=== PATIENT | female | born 1960 | race Caucasian/White ===

== ENCOUNTER 2022-06-09 14:12 | Observation (INO) ==
--- NOTE | 2022-06-09 14:24 | DR.DIZZY ---
HPI Time seen Time Seen by Provider: 06/09/22 14:22 HPI Comment HPI Comment: A 62 y/o female presenting with dizziness, described as if things are or her head is spinning. She had associated nausea but no vomitting. THis had been going on for about 6 months. She just left Dr. Moseley's clinic where s he had a tilt test done. She denies tinnitus. She denies palpitaions, c/p or SOB. She has seen a hand bander, ENT provider and she is waiting to see a Neurologist. She has had EKGs, Holter monitor, Echocardiogram and Brain CT scan. She had a tilt test done this afternoon. 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 It is not radiating, she has no SOB or palpitations. She had been given a S/L NTG at the clinic for the tilt test ? Nurses Notes Reviewed Nurses Notes Review: Yes Source History Provided: Patient and Family Member Location of Weakness Weakness Location: None Context Onset: At rest and With light exertion Stroke Symptoms: Dizziness Modifying factors Worsens: Nothing Associated signs and symptoms Associated Signs and Symptoms: Syncope, Near Syncope, Imbalance and Nausea PMH PMH Past Medical History: Anxiety, Arthritis, Diabetes, GERD, Hypertension and Sleep Apnea Past Medical History Comment: Dizziness, Syncope Past Surgical History: Yes Surgical History: Hysterectomy and Ortho Surgery Family History Family Medical History: [place], Coronary Artery Disease and Hypertension Social History Do you use any recreational Drugs:: No ROS Review of Systems Constitutional: No Symptoms Reported Eyes: No Symptoms Reported ENTM: No Symptoms Reported Respiratoy: No Symptoms Reported Cardiovascular: Chest Pain and Syncope Gastrointestinal/Abdominal: No Symptoms Reported Genitourinary: No Symptoms Reported Neurological: Dizziness Musculoskeletal: No Symptoms Reported Integumentary: No Symptoms Reported Hematologic/Lymphatic: No Symptoms Reported Endocrine: No Symptoms Reported Psychiatric: No Symptoms Reported All Other Systems: Reviewed and Negative PE Vital Signs Vitals: Temperature 98.3 F Pulse Rate [Standing] 68 Pulse Rate [Sitting] 70 Pulse Rate [Lying] 62 Pulse Rate 63 Respiratory Rate 20 Blood Pressure [Left Arm] 145/67 Blood Pressure [Standing] 184/79 Blood Pressure [Sitting] 167/88 Blood Pressure [Lying] 165/81 Blood Pressure 154/69 O2 Sat by Pulse Oximetry 97 General Limitations: No Limitations General Appearance: Alert and In No Apparent Distress Head Head Exam: Normal Inspection, Atraumatic and Normocephalic Eyes Eye exam: Normal Appearance and EOMI ENT ENT Exam: Normal Exam, Normal Oropharynx, Normal External Ear Exam and Mucous Membranes Moist Neck Neck Exam: Normal Inspection, Full ROM and Trachea Midline Chest Chest Inspection: Normal Inspection and Symmetric Chest Wall Rise Respiratory Respiratory Exam: Normal Lung Sounds Bilat Cardiovascular Cardiovascular Exam: Regular Rate, Normal Rhythm, Normal Heart Sounds, +S1 and +S2 Abdominal Exam Abdominal Exam: Normal Inspection, Normal Bowel Sounds and Soft Rectal Rectal Exam: Deferred Extremeties Extremities Exam: Normal Inspection and Full ROM Back Back Exam: Normal Inspection and Full ROM Neurologic Neurological Exam: Alert and Oriented X3 Psychiatric Psychiatric Exam: Normal Affect and Normal Mood Skin Skin Exam: Dry, Intact and Normal Color COURSE Treatment Treatment: her test results were reviewed with her. She has had a dose of S/L NTG which caused headache. She's had IV Lopressor and Morphine Sulphate. HEr EKG, Cardiac Enzymes were normal. I discussed with Dr. Crawley, who agrees to hold her in house for OBS., to r/o. Reevaluation 1st: Improved Education/Counseling Education/Counseling: Patient, Family, Education and Counseling Educated On: Treatment, Diagnosis, Prognosis and Needs for Follow Up ROR Labs Reviewed Laboratory Results Reviewed?: Yes Result Diagrams: 06/09/22 14:45 Laboratory: PT 13.2 SECONDS (11.8-14.3) 06/09/22 14:45 INR Target Range - 06/09/22 14:45 INR 1.03 (0.8-1.3) 06/09/22 14:45 APTT 28.1 SECONDS (22.9-36.5) 06/09/22 14:45 PTT Comment - 06/09/22 14:45 Sodium 142 mmol/L (136-145) 06/09/22 14:45 Corrected Sodium TNP 06/09/22 14:45 Potassium 3.8 mmol/L (3.5-5.1) 06/09/22 14:45 Chloride 107 mmol/L (98-107) 06/09/22 14:45 Carbon Dioxide 28.9 mmol/L (21-32) 06/09/22 14:45 BUN 11 mg/dL (7-18) 06/09/22 14:45 Creatinine 0.66 mg/dL (0.55-1.02) 06/09/22 14:45 Est GFR (MDRD) Af Amer > 60 (>60) 06/09/22 14:45 Est GFR (MDRD) Non-Af > 60 (>60) 06/09/22 14:45 Glucose 88 mg/dL (65-99) 06/09/22 14:45 Calcium 9.1 mg/dL (8.5-10.1) 06/09/22 14:45 Corrected Calcium TNP 06/09/22 14:45 Magnesium 1.9 mg/dL (2.0-2.9) L 06/09/22 14:45 Total Bilirubin 0.30 mg/dL (0.2-1.0) 06/09/22 14:45 AST 15 Units/L (15-37) 06/09/22 14:45 ALT 14 Units/L (12-78) 06/09/22 14:45 Alkaline Phosphatase 136 Units/L (46-116) H 06/09/22 14:45 Creatine Kinase 47 Units/L (26-192) 06/09/22 14:45 Troponin I High Sens 8.0 ng/L (4.0-60.0) 06/09/22 14:45 Total Protein 6.9 g/dL (6.4-8.2) 06/09/22 14:45 Albumin 3.6 g/dL (3.4-5.0) 06/09/22 14:45 Globulin 3.3 g/dL (2.5-4.5) 06/09/22 14:45 Albumin/Globulin Ratio 1.1 Ratio (1.1-2.1) 06/09/22 14:45 XRAY XRAY Interpreted by: Self X-ray Results: CXR: no cardiomegaly or infiltrates noted. EKG Rate: 60 Adel: Normal Rhythm: NSR Block: None Hypertrophy: None ST: Normal Opioid Opioid Risk Tool Age (Poli box if 16-45): No History of Preadolescent Sexual Abuse: No Total: 0 Total Score Risk Category: Low Risk Copyright: [facility] predicting aberrant behaviors Discharge Plan Diagnosis Discharge Problem: Chest pain at rest, Syncope, HTN (hypertension), Diabetes mellitus type 2, controlled Discharge Plan Patient Disposition: 09 ADMITTED INPATIENT Condition: Stable Prescriptions: No Action amlodipine 10 mg tablet 10 mg PO QDAY pantoprazole 40 mg tablet,delayed release (DR/EC) 40 mg PO BID Dupixent Pen 300 mg/2 mL pen injector 300 mg SUBCUT Q2W cetirizine 10 mg tablet 10 mg PO QDAY oxybutynin chloride 5 mg tablet 5 mg PO BID hydroxyzine HCl 10 mg tablet 1 - 2 tab PO Q6H PRN (Reason: anxiety) fluticasone propionate 50 mcg/actuation spray,suspension 1 spray INTRANASAL QDAY dicyclomine 10 mg capsule 10 mg PO TID PRN buspirone 15 mg tablet 15 mg PO QPM alprazolam 1 mg tablet 1 mg PO QHS PRN Label Comments: TAKE 1 TABLET BY MOUTH ONCE DAILY AT BEDTIME NEEDED Health Concerns: Post Hospitalization: new medications and changes needed to prevent readmission or further decline. Pt educated and given instructions on all concerns. Plan of Treatment: Continue with present treatment and follow up plan. Pt is to keep follow up a ppointment as instructed and take medications as ordered. Orders to Discharge Patient Discharge Orders: Transfer (Routine); Ordered 06/09/22 Ordered By: GILDA CRUZ Follow ups/Referrals Follow ups/Referrals: Nawaf BERNABE [Primary Care Provider] - 3 days
[2022-06-09 14:27] VITALS: BMI 29.4
[2022-06-09] MEDS ORDERED: ANTIVERT TAB 25 MG PO ONE (14:28)
[2022-06-09] MEDS ORDERED: NITROSTAT SL PRN (14:37)
[2022-06-09] MEDS ORDERED: ANTIVERT TAB 25 MG ONE (14:51)
[2022-06-09] MEDS ORDERED: MORPHINE SULFATE INJ 2 MG INJ ONE (15:12)
[2022-06-09] MEDS ORDERED: MORPHINE SULFATE INJ 2 MG INJ IVP ONE (15:12)
[2022-06-09 15:20] LABS: INR 1.03 (0.8-1.3)
[2022-06-09 15:24] LABS: ALANINE AMINOTRANSFERASE 14 Units/L (12-78); ALBUMIN 3.6 g/dL (3.4-5.0); ALKALINE PHOSPHATASE 136 Units/L (46-116); ASPARTATE AMINO TRANSFERASE 15 Units/L (15-37); BLOOD UREA NITROGEN 11 mg/dL (7-18); CALCIUM 9.1 mg/dL (8.5-10.1); CARBON DIOXIDE 28.9 mmol/L (21-32); CHLORIDE 107 mmol/L (98-107); CREATININE 0.66 mg/dL (0.55-1.02); SODIUM 142 mmol/L (136-145); TOTAL PROTEIN 6.9 g/dL (6.4-8.2); eGFR NON BLACK RACES > 60 (>60)
[2022-06-09] MEDS ORDERED: ATIVAN 20 MG/10 ML VIAL IVP ONE (15:40)
[2022-06-09] MEDS ORDERED: ATIVAN INJ 2 MG VIAL ONE (15:42)
[2022-06-09] MEDS ORDERED: DUONEB 0.5 MG/3 MG (3 mL) NEB ONE (16:43)
[2022-06-09] MEDS ORDERED: LOPRESSOR INJ 5 MG AMP IVP ONE (16:55)
[2022-06-09] MEDS ORDERED: LOPRESSOR INJ 5 MG AMP ONE (16:56)
--- NOTE | 2022-06-09 17:19 | RAD ---
HISTORYChest painSTUDYSingle-view chestCOMPARISONNoneFINDINGSThe trachea is midline. The cardiac silhouette is enlarged with a tortuous thoracic aorta . The lungs are clear without focal infiltrate or effusion. The bony thorax is unremarkable.IMPRESSIONNo acute cardiopulmonary disease.Electronically signed by: PAT PEREZ (Jun 09, 2022 17:17:59)
[2022-06-09] MEDS ORDERED: ANTIVERT TAB 25 MG PO PRN (17:39)
[2022-06-09] MEDS ORDERED: ATARAX TAB 10 MG PO PRN (19:17)
[2022-06-09] MEDS ORDERED: BENTYL CAP 10 MG PO PRN (19:17)
[2022-06-09] MEDS: LOVENOX INJ 40 MG SYR SC SCH (21:00)
[2022-06-09] MEDS: NS 1,000 ML IV 1,000 ML IV SCH (21:21)
[2022-06-09] MEDS: FLONASE NASAL SPRAY ENOSTRIL SCH (21:21)
[2022-06-09] MEDS: XANAX PO PRN (21:22)
[2022-06-09] MEDS: PROTONIX TAB 40 MG PO SCH (21:22)
[2022-06-09] MEDS: NORVASC TAB 10 MG PO SCH (21:23)
[2022-06-09] MEDS: DITROPAN TAB 5 MG PO SCH (21:23)
[2022-06-09] MEDS: ZyrTEC TAB 10 MG PO SCH (21:23)
[2022-06-09] MEDS: LOPRESSOR TAB 50 MG PO SCH (21:23)
[2022-06-09] MEDS: BUSPAR PO SCH (21:24)
[2022-06-09] MEDS: MORPHINE SULFATE INJ 2 MG INJ IVP PRN (21:24)
[2022-06-10] MEDS: MORPHINE SULFATE INJ 2 MG INJ IVP PRN ×4 (02:51→17:03)
[2022-06-10 03:09] LABS: BASOPHILS # (AUTO) 0.1 X10^3/uL (0.0-0.1); BASOPHILS % (AUTO) 1.6 % (0.2-1.0); EOSINOPHILS # (AUTO) 0.3 x10^3/uL (0.0-0.2); HEMATOCRIT 37.3 % (36.0-47.0); HEMOGLOBIN 13.3 g/dL (12.0-16.0); LYMPHOCYTES # (AUTO) 3.2 X10^3/uL (1.3-2.9); LYMPHOCYTES % (AUTO) 33.9 % (21.0-51.0); MEAN CORPUSCULAR HEMOGLOBIN 30.2 pg (27.0-34.0); MEAN CORPUSCULAR HGB CONC 35.7 g/dL (33.0-35.0); MEAN CORPUSCULAR VOLUME 84.6 fL (80.0-100.0); MEAN PLATELET VOLUME 9.8 fL (7.4-11.0); MONOCYTES # (AUTO) 0.7 x10^3/uL (0.3-0.8); MONOCYTES % (AUTO) 7.1 % (0.0-13.0); NEUTROPHILS # (AUTO) 5.1 x10^3/uL (2.2-4.8); NEUTROPHILS % (AUTO) 54.4 % (42.0-75.0); WHITE BLOOD COUNT 9.4 X10^3/uL (3.6-10.0)
[2022-06-10 03:25] LABS: ALANINE AMINOTRANSFERASE 10 Units/L (12-78); ALKALINE PHOSPHATASE 126 Units/L (46-116); ASPARTATE AMINO TRANSFERASE 11 Units/L (15-37); BLOOD UREA NITROGEN 14 mg/dL (7-18); CALCIUM 8.4 mg/dL (8.5-10.1); CARBON DIOXIDE 26.2 mmol/L (21-32); CHLORIDE 108 mmol/L (98-107); CHOL/HDL RATIO 6.7 (0.0-5.0); CHOLESTEROL 174 mg/dL (0-200); COR CA(FOR HYPOALB) 9.2 mg/dL (8.5-10.1); CREATININE 1.08 mg/dL (0.55-1.02); HDL CHOLESTEROL 26 mg/dL (40-60); SODIUM 142 mmol/L (136-145); TOTAL PROTEIN 6.1 g/dL (6.4-8.2); TRIGLYCERIDES 259 mg/dL (0-150); eGFR NON BLACK RACES 54 (>60)
[2022-06-10] MEDS ORDERED: K-DUR TAB 20 MEQ PO PRN (03:35)
[2022-06-10] MEDS ORDERED: K-RIDER 10 MEQ/NS 100 ML 10 MEQ/100 ML BAG IV PRN (03:35)
[2022-06-10] MEDS ORDERED: MICRO K EXTEN CAP 10 MEQ PO PRN (03:35)
[2022-06-10] MEDS ORDERED: KLOR-CON PO PRN (03:35)
[2022-06-10] MEDS: MAGNESIUM SULFATE 1 GRAM/100 mL PREMIX 1 G/100 ML BAG IV PRN ×2 (04:08→05:12)
[2022-06-10] MEDS ORDERED: ZOFRAN INJ 4 MG VIAL IVP PRN (07:23)
[2022-06-10] MEDS: ASPIRIN PO SCH (09:45)
[2022-06-10] MEDS: PROTONIX TAB 40 MG PO SCH ×2 (09:45→21:20)
[2022-06-10] MEDS: LOPRESSOR TAB 50 MG PO SCH ×2 (09:46→21:21)
[2022-06-10] MEDS: NORVASC TAB 10 MG PO SCH (09:47)
[2022-06-10] MEDS: ZyrTEC TAB 10 MG PO SCH (09:47)
[2022-06-10] MEDS: LOVENOX INJ 40 MG SYR SC SCH ×2 (09:49→21:22)
[2022-06-10] MEDS: DITROPAN TAB 5 MG PO SCH ×2 (09:49→21:21)
[2022-06-10] MEDS: FLONASE NASAL SPRAY ENOSTRIL SCH (10:17)
[2022-06-10] MEDS: NS 1,000 ML IV 1,000 ML IV SCH ×3 (11:29→21:42)
--- NOTE | 2022-06-10 13:26 | DR.H&P ---
H&P - History & Physical for Day of: H&P Date: 06/09/22 - Chief Complaint Chief Complaint: chest pain, syncope - History of Present Illness History of Present Illness: A 62 y/o wf, ER admission after presenting with dizziness, described as if things are or her head is spinning. She had associated nausea but no vomitting. This had been going on for about 6 months. She just left Dr. Moseley's clinic where she had a tilt test done. She denies tinnitus. She denies palpitaions, c/p or SOB. She has seen a outboard motor tester, ENT provider and she is waiting to see a Neurologist. She has had EKGs, Holter monitor, Echocardiogram and Brain CT scan. She had a tilt test done this afternoon. 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 It is not radiating, she has no SOB or palpitations. She had been given a S/L NTG at the clinic for the tilt test. - Past Medical History Past Medical History: Hypertension, Diabetes, Anxiety, GERD, Arthritis, Sleep Apnea - Past Surgical History Surgical History: Hysterectomy, Ortho Surgery - Family History Family Medical History: Cancer, Coronary Artery Disease, Hypertension - Social History Does patient currently use any type of tobacco product: No Have you used tobacco products in the last 12 months: No Type of Tobacco Use: None Does any household member use tobacco: No Alcohol Use: None Drug Use: None - Medications Home Medications: hydrocodone Allergy (Verified 08/29/18 20:28) CONTINUE taking the following medications buspirone 15 mg tablet 15 mg PO QPM 06/09/22 [History] cetirizine 10 mg tablet 10 mg PO QDAY 06/09/22 [History] dicyclomine 10 mg capsule 10 mg PO TID PRN 06/09/22 [History] fluticasone propionate 50 mcg/actuation nasal spray,suspension 1 spray intranasal QDAY 06/09/22 [History] hydroxyzine HCl 10 mg tablet 1 - 2 tab PO Q6H PRN anxiety 06/09/22 [History] oxybutynin chloride 5 mg tablet 5 mg PO BID 06/09/22 [History] - Review of Systems Constitutional: Malaise Eyes: No Symptoms Reported ENT: No Symptoms Reported Respiratory: No Symptoms Reported Cardiovascular: Chest Pain, Palpitations Gastrointestinal: Nausea Musculoskeletal: No Symptoms Reported Skin: No Symptoms Reported Neurological: Weakness, Other (syncope) - Physical Exam Vital Signs: Temperature 97.9 F Pulse Rate [Right Brachial] 64 Pulse Rate [Standing] 68 Pulse Rate [Sitting] 70 Pulse Rate [Lying] 62 Pulse Rate 63 Respiratory Rate 18 Blood Pressure [Right Arm] 106/51 Blood Pressure [Left Arm] 145/67 Blood Pressure [Standing] 184/79 Blood Pressure [Sitting] 167/88 Blood Pressure [Lying] 165/81 Blood Pressure 154/69 O2 Sat by Pulse Oximetry 96 Oriented: Normal Eyes: Normal Ear: Normal Nose: Normal Throat: Normal Respiratory: Clear Throughout Cardiovascular: Normal. negative: Edema : Normal Auscultation: Bowel Sounds: Normal Palpation: Normal Tenderness: Normal Skin: Normal Musculoskeletal: Normal Psychiatric: Anxiety Affect: Anxious Speech Pattern: Clear, Appropriate - Assessment/Plan (1) Chest pain at rest Status: Acute Plan: ADMIT, SERIAL CE AND EKG. BP CONTROL, PRN SUPPLEMENTAL O2. STRICT I&OS. VERIFY HOME MEDICATION. OBTAIN RECENT CARDIOLOGY DIAGNOSTIC TEST REPORTS, ECHO, CATH REPORT, CAROTID ARTERY REPORT. (2) Syncope Status: Acute (3) HTN (hypertension) Status: Acute (4) Diabetes mellitus type 2, controlled Status: Acute - Allergies Allergies/Adverse Reactions: Allergies Allergy/AdvReac Type Severity Reaction Status Date / Time hydrocodone Allergy Verified 08/29/18 20:28
[2022-06-10] MEDS ORDERED: TORADOL 30 MG VIAL IVP ONE (17:55)
[2022-06-10] MEDS ORDERED: SOLU-Medrol 125 MG VIAL IVP ONE (17:55)
[2022-06-10] MEDS ORDERED: LEXAPRO ONE (18:09)
[2022-06-10] MEDS ORDERED: NovoLIN R (or HumuLIN R) SUBCUT PRN (18:26)
[2022-06-10] MEDS: LEXAPRO PO SCH (18:28)
[2022-06-10] MEDS ORDERED: NS 100 ML IV 100 ML ONE (19:51)
[2022-06-10] MEDS ORDERED: SNACK - Diabetic Appropriate PO SCH (20:00)
[2022-06-10] MEDS ORDERED: CRESTOR TAB 10 MG PO SCH (21:00)
[2022-06-10] MEDS: XANAX PO PRN (21:20)
[2022-06-10] MEDS: BUSPAR PO SCH (21:21)
--- NOTE | 2022-06-10 21:27 | CT ---
[facility]ST[facility] CHESTMERCY [facility]PITAL JOPLINPARISONTECHNIQUEMultiple axial images of the chest were obtained from the thoracic inlet to the upper abdomen after the administration of IV contrast. 3D reconstructions utilizing axial MIPS imaging was performed and reviewed. Dose reduction techniques including Automated Exposure Control (AEC) and adjustment of mA and kV were utilized.FINDINGSThe heart size is enlarged. There is no filling defect in the pulmonary arteries to suggest pulmonary embolus. There is no pathologic adenopathy. The airways are grossly clear. There is some stranding in both lungs suggestive of atelectasis. There is no pleural effusion. Upper abdominal structures are grossly unremarkable. There is no worrisome bone marrow lesion.IMPRESSION1. Negative for pulmonary embolus. 2. Cardiomegaly. 3. Mild pulmonary stranding suggestive of atelectasis.Electronically signed by: Josh Shelton (Jun 10, 2022 21:26:01)
[2022-06-11 06:40] LABS: BASOPHILS % (AUTO) 0.5 % (0.2-1.0); EOSINOPHILS % (AUTO) 0.1 % (0.9-2.9); HEMATOCRIT 37.3 % (36.0-47.0); HEMOGLOBIN 13.1 g/dL (12.0-16.0); LYMPHOCYTES # (AUTO) 1.1 X10^3/uL (1.3-2.9); LYMPHOCYTES % (AUTO) 14.9 % (21.0-51.0); MEAN CORPUSCULAR HGB CONC 35.1 g/dL (33.0-35.0); MEAN CORPUSCULAR VOLUME 85.5 fL (80.0-100.0); MEAN PLATELET VOLUME 9.8 fL (7.4-11.0); MONOCYTES # (AUTO) 0.1 x10^3/uL (0.3-0.8); MONOCYTES % (AUTO) 0.9 % (0.0-13.0); NEUTROPHILS # (AUTO) 6.4 x10^3/uL (2.2-4.8); NEUTROPHILS % (AUTO) 83.6 % (42.0-75.0); RED BLOOD COUNT 4.36 X10^6/uL (3.5-5.4); RED CELL DISTRIBUTION WIDTH 12.7 % (11.6-16.5); WHITE BLOOD COUNT 7.6 X10^3/uL (3.6-10.0)
[2022-06-11 06:49] LABS: ALANINE AMINOTRANSFERASE 98 Units/L (12-78); ALBUMIN 3.1 g/dL (3.4-5.0); ALKALINE PHOSPHATASE 140 Units/L (46-116); ASPARTATE AMINO TRANSFERASE 131 Units/L (15-37); BLOOD UREA NITROGEN 18 mg/dL (7-18); CALCIUM 8.6 mg/dL (8.5-10.1); CARBON DIOXIDE 24.2 mmol/L (21-32); CHLORIDE 108 mmol/L (98-107); COR CA(FOR HYPOALB) 9.3 mg/dL (8.5-10.1); COR NA(FOR HYPERGLY) 145 mmol/L (136-145); CREATININE 0.92 mg/dL (0.55-1.02); SODIUM 143 mmol/L (136-145); TOTAL PROTEIN 6.4 g/dL (6.4-8.2); eGFR NON BLACK RACES > 60 (>60)
[2022-06-11] MEDS ORDERED: LEXAPRO ONE (08:08)
[2022-06-11 08:59] VITALS: BP 128/60
[2022-06-11] MEDS: ZyrTEC TAB 10 MG PO SCH (09:20)
[2022-06-11] MEDS: LOPRESSOR TAB 50 MG PO SCH (09:20)
[2022-06-11] MEDS: LEXAPRO PO SCH ×2 (09:21→09:27)
[2022-06-11] MEDS: PROTONIX TAB 40 MG PO SCH (09:21)
[2022-06-11] MEDS: NORVASC TAB 10 MG PO SCH (09:21)
[2022-06-11] MEDS: DITROPAN TAB 5 MG PO SCH (09:21)
[2022-06-11] MEDS: ASPIRIN PO SCH (09:21)
[2022-06-11] MEDS: LOVENOX INJ 40 MG SYR SC SCH (09:22)
[2022-06-11] MEDS: FLONASE NASAL SPRAY ENOSTRIL SCH (09:25)
[2022-06-11] MEDS: NS 1,000 ML IV 1,000 ML IV SCH (09:27)
== END 2022-06-11 11:07 | disposition home or self-care (01) ==
LOC: ER 14:12 → MED/SURG 14:12 → OBSVTOIN 17:29 → MED/SURG 18:11 → INTOOBSV 06-10 18:00
PROVIDERS: ADMIT Internal Medicine; ATTEND Internal Medicine
DX: E11.65 Type 2 diabetes mellitus with hyperglycemia; E78.2 Mixed hyperlipidemia; K58.9 Irritable bowel syndrome, unspecified; R07.89 Other chest pain; R94.31 Abnormal electrocardiogram [ECG] [EKG]; F41.8 Other specified anxiety disorders; I95.1 Orthostatic hypotension; E87.6 Hypokalemia; K21.9 Gastro-esophageal reflux disease without esophagitis; R42 Dizziness and giddiness; I10 Essential (primary) hypertension